=== PATIENT | female | born 1935 | race Caucasian/White ===

== ENCOUNTER 2016-10-07 13:22 | Inpatient (IN) | payer MEDICARE ==
[2016-10-07 14:56] VITALS: BMI 22.8
[2016-10-07] MEDS ORDERED: HEPARIN SODIUM,PORCINE 5,000 UNIT/ML 1 ML VIAL IV PRN (16:06)
[2016-10-07] MEDS ORDERED: HEPARIN SODIUM,PORCINE 10,000 UNIT/ML 1 ML VIAL IV ONE (16:06)
[2016-10-07] MEDS ORDERED: ALBUTEROL SULFATE INHALATION PRN (16:41)
[2016-10-07] MEDS ORDERED: IPRATROPIUM-ALBUTEROL 3 ML NEB INHALATION PRN (16:43)
[2016-10-07] MEDS: HEPARIN SODIUM,PORCINE/D5W PMX 25,000 UNIT in DEXTROSE/WATER 1 500ML.BAG IV SCH (16:49)
--- NOTE | 2016-10-07 16:51 | P.HPIM ---
History of Present Illness H&P Date: 10/07/16 Chief Complaint: Pulmonary embolism, dyspnea and shortness of breath, severe pleuritic 81-year-old female one of my office patient of radha seen over a year ago is known to have history of breast cancer history of peptic ulcer disease hyperlipidemia and osteoporosis who presented to the office 2 weeks ago with significant wheezes tightness severe bronchitis and pneumonitis. Patient was treated with 1 course of antibiotic along with Medrol Dosepak and albuterol she is done better but continue having slight shortness of breath. Return to the office the other day with symptoms consistent with mild pain with deep inspiration mostly consistent in the midsternal area laterally with no exertional pain associated with it. Arrangement for CTA was done which was performing came back positive for pulmonary embolism. Patient was called and and directly admitted to the hospital for pulmonary embolism was start her on heparin drip consult pulmonary continue updraft treatment continue current treatment management for it and patient will be on anticoagulation for the next 6 months also Doppler of the lower extremity be done to exclude the possibility of DVT had cause of PE. Surprisingly her CT showed 5 mm right apical pulmonary nodular need to be watch and follow in the next few month. Review of Systems Constitutional: Reports anorexia, Reports fatigue, Reports malaise, Reports poor appetite, Reports weakness, Denies as per HPI, Denies chills, Denies chronic headaches, Denies chronic pain, Denies daytime sleepiness, Denies fever , Denies lethargy, Denies night sweats, Denies sweats, Denies weight gain, Denies weight loss Eyes: bilateral as per HPI Ears: bilateral: decreased hearing Ears, nose, mouth and throat: Reports nasal congestion, Reports nasal discharge , Reports sinus pain, Reports sinus pressure, Denies as per HPI, Denies ant. neck pain, Denies bleeding gums, Denies dental pain, Denies dysphagia, Denies epistaxis, Denies headache, Denies hoarseness, Denies mouth pain, Denies neck fullness/pressure, Denies neck lump, Denies nose pain, Denies odynophagia, Denies post-nasal drip, Denies swelling in mouth, Denies swelling in throat, Denies sore throat, Denies vertigo, Denies voice changes Breasts: bilateral: as per HPI Cardiovascular: Reports chest pain, Reports decreased exercise tolerance, Reports edema, Reports high blood pressure, Reports irregular heart beat, Reports leg edema, Reports lightheadedness, Reports orthopnea, Reports paroxysmal nocturnal dyspnea, Reports rapid heart beat, Reports shortness of breath, Denies as per HPI, Denies claudication, Denies dyspnea on exertion, Denies palpitations, Denies phlebitis, Denies syncope Respiratory: Reports congestion, Reports cough, Reports dyspnea, Reports pain on inspiration, Reports pleurisy, Reports wheezing, Denies as per HPI, Denies cough with sputum, Denies excessive sputum, Denies hemoptysis, Denies home oxygen, Denies pain, Denies respiratory infections, Denies sleep apnea, Denies snoring Gastrointestinal: Reports abdominal pain, Reports bloating, Reports BRBPR, Reports constipation, Reports dyspepsia, Reports indigestion, Reports nausea, Denies as per HPI, Denies belching, Denies change in bowel habits, Denies coffee ground emesis, Denies diarrhea, Denies early satiety, Denies excessive gas, Denies heartburn, Denies hematemesis, Denies hematochezia, Denies jaundice , Denies lactose intolerance, Denies loss of appetite, Denies melena, Denies vomiting Genitourinary: Reports nocturia, Reports urge incontinence, Reports urgency, Denies as per HPI, Denies abnormal vaginal bleeding, Denies decreased libido, Denies difficulty conceiving, Denies difficulty voiding, Denies dysmenorrhea, Denies dyspareunia, Denies dysuria, Denies flank pain, Denies genital sores, Denies hematuria, Denies hot flashes, Denies incomplete emptying, Denies kidney stones, Denies menorrhagia, Denies mixed incontinence, Denies pelvic pain, Denies post void dribbling, Denies , Denies prolapse symptoms, Denies stress incontinence, Denies urinary frequency, Denies vaginal discharge, Denies vaginal dryness, Denies vaginal itching, Denies vaginal odor Musculoskeletal: Reports loss of height, Reports low back pain, Reports neck pain, Reports neck stiffness, Denies as per HPI, Denies arm numbness/tingling, Denies atrophy, Denies fractures, Denies frequent falls, Denies gait dysfunction , Denies hot joints, Denies leg numbness/tingling, Denies limitation of motion, Denies morning stiffness, Denies muscle cramps, Denies muscle weakness, Denies myalgias, Denies prior amputations, Denies redness of joints, Denies shooting arm pain, Denies shooting leg pain Integumentary: Reports pruritus, Reports rash, Denies as per HPI, Denies acne, Denies boils, Denies brittle nails, Denies change in hair/nails, Denies color changes, Denies darkening of skin, Denies depigmentation, Denies dryness, Denies foot/leg ulcers, Denies growths, Denies hirsutism, Denies lesions, Denies onychomycosis, Denies sores, Denies striae, Denies unusual bruising, Denies wounds Neurological: Reports numbness, Reports paresthesias, Reports weakness, Denies as per HPI, Denies aphasia, Denies ataxia, Denies balance difficulties, Denies burning pain, Denies change in mentation, Denies change in smell/taste, Denies change in speech, Denies confusion, Denies convulsions, Denies double vision, Denies gait dysfunction, Denies head injury, Denies headaches, Denies hearing difficulties, Denies lack of coordination, Denies loss of vision, Denies memory loss, Denies migraines, Denies motor disturbance, Denies paralysis, Denies seizures, Denies sensory deficit, Denies spasticity, Denies syncope, Denies tic , Denies tingling, Denies transient paralysis, Denies tremors, Denies vertigo, Denies visual changes Psychiatric: Reports anhedonia, Reports anxiety, Reports depression, Denies as per HPI, Denies anxiety attacks, Denies change in appetite, Denies change in libido, Denies change in sleep habits, Denies confusion, Denies difficulty concentrating, Denies disorientation, Denies hallucinations, Denies hopelessness , Denies hypersomnia, Denies insomnia, Denies irritability, Denies memory loss, Denies mood swings, Denies paranoia, Denies sadness/tearfulness, Denies sleep disturbances, Denies suicidal ideation Endocrine: Reports cold intolerance, Reports fatigue, Denies as per HPI, Denies deepening of the voice, Denies excessive sweating, Denies excessive thirst, Denies flushing, Denies heat intolerance, Denies high blood sugars, Denies increase in ring/shoe/hat size, Denies low blood sugars, Denies nocturia, Denies palpitations, Denies polydipsia, Denies polyphagia, Denies polyuria, Denies proptosis, Denies recent glucocorticoid use, Denies thyroid mass, Denies weight change Hematologic/Lymphatic: Reports easy bruising, Denies as per HPI, Denies easy bleeding, Denies lymphadenopathy, Denies lymphedema, Denies thrombophilia Allergic/Immunologic: Reports allergic rhinitis, Denies as per HPI, Denies anaphylaxis, Denies angioedema, Denies gluten intolerance, Denies persistent infections, Denies seasonal allergies, Denies urticaria, Denies wheezing Past Medical History Past Medical History: Cancer Additional Past Medical History / Comment(s): TENDONITIS, LEFT BREAST CA History of Any Multi-Drug Resistant Organisms: None Reported Past Surgical History: Cholecystectomy, Hernia Repair, Tonsillectomy Additional Past Surgical History / Comment(s): LEFT BREAST LUMP REMOVAL Past Psychological History: No Psychological Hx Reported Smoking Status: Never smoker Past Alcohol Use History: None Reported Past Drug Use History: None Reported Medications and Allergies Home Medications Medication Instructions Recorded Confirmed Type Cholecalciferol (Vitamin D3) 50,000 unit PO FR 07/15/15 10/07/16 History [Vitamin D] Vits A,C,E/Lutein/Minerals 1 tab PO DAILY 07/15/15 10/07/16 History [Ocuvite with Lutein Tablet] Vitamin E 400 unit PO DAILY 07/23/15 10/07/16 History Albuterol Sulfate [Proair 1 puff INHALATION RT-Q6H PRN 10/07/16 10/07/16 History Respiclick] Carboxymethylcellulose Sodium 1 drop BOTH EYES BID 10/07/16 10/07/16 History [Refresh Tears] Colchicine 0.6 mg PO DAILY 10/07/16 10/07/16 History Allergies Allergy/AdvReac Type Severity Reaction Status Date / Time nitrofurantoin Allergy Unknown Verified 10/07/16 15:49 [From Macrobid] nitrofurantoin Allergy Unknown Verified 10/07/16 15:49 macrocrystalline [From Macrobid] cefuroxime axetil AdvReac Unknown Verified 10/07/16 15:49 [From Ceftin] iodine AdvReac Unknown Verified 10/07/16 15:49 Sulfa (Sulfonamide AdvReac Unknown Verified 10/07/16 15:49 Antibiotics) Physical Exam Vitals: Vital Signs Pulse Resp BP Pulse Ox 10/07/16 16:00 52 L 18 140/72 97 Intake and Output 10/07/16 10/07/16 10/07/16 06:59 14:59 22:59 Other: Weight 60.2 kg Patient Weight 10/08/16 06:59 Weight 60.2 kg - Constitutional General appearance: no average body habitus, cooperative, disheveled, no mild distress, no morbidly obese, no acute distress, no obese, no severe distress, no thin - EENT Eyes: no abnormal pupil, no anicteric sclerae, no disc margins sharp, no edentulous, no EOMI, no PERRLA, no fundus normal, no photophobia, no dentition normal, no poor dentition, no ptosis, no scleral icterus, normal appearance ENT: no hard of hearing, no hearing grossly normal, no NA/AT, normal oropharynx , no other, no pharyngeal erythema, no thrush, no tonsillar exudates, no tonsillar swelling Ears: bilateral: normal - Neck Neck: no lymphadenopathy, normal ROM, no other, no rigidity, no stridor, no thyromegaly Carotids: bilateral: upstroke normal Thyroid: bilateral: normal size - Respiratory Respiratory: bilateral: diminished, dullness, rales - Cardiovascular Rhythm: regular Heart sounds: normal: S1, S2 Abnormal Heart Sounds: systolic murmur, S3 Gallop - Gastrointestinal General gastrointestinal: no absent bowel sounds, no decreased bowel sounds, distended, no hepatomegaly, no hyperactive bowel sounds, no normal bowel sounds , no organomegaly, no rigid, no scaphoid, soft, no splenomegaly, no tenderness, no umbilical hernia, no ventral hernia - Integumentary Integumentary: cellulitis, normal, pale, rash - Neurologic Neurologic: CNII-XII intact - Musculoskeletal Musculoskeletal: gait normal, generalized weakness, strength equal bilaterally, no right sided weakness, no left sided weakness - Psychiatric Psychiatric: A&O x's 3, appropriate affect Results CBC & Chem 7: 10/08/16 06:20 10/07/16 16:46 Thrombosis Risk Factor Assmnt - DVT/VTE Prophylaxis DVT/VTE Prophylaxis: Pharmacologic Prophylaxis ordered, Mechanical Prophylaxis ordered - Choose All That Apply Any of the Below Risk Factors Present?: Yes Each Risk Factor Represents 3 Points: Age 75 years or older Thrombosis Risk Factor Assessment Total Risk Factor Score: 3 Thrombosis Risk Factor Assessment Level: Moderate Risk Assessment and Plan Plan: 1 pulmonary embolism: Acute with worsening dyspnea and shortness of breath more pleuritic type with this finding Doppler of the lower extremity be done patient be started on heparin drip per protocol and convert to oral anticoagulation in the next 48 hours we'll consult pulmonary keep watching for any other sign and symptoms consistent with PE. 2 pulmonary nodular: Small at this point but need to be watched repeat another CT in 3 months. 3 recent history of pneumonitis and reactive airway/asthma: Continue patient on DuoNeb and no steroid needed at this point patient was on steroid last week. 4 history of breast cancer: Has been in remission. 5 hyperlipidemia: Has been on diet control. 6 history of peptic ulcer disease/GI prophylaxis: Patient be continue on 20 mg omeprazole daily. 7 COPD: Finding consistent with COPD on CT patient never smoked her symptoms are more chronic bronchitis/asthma cause COPD. Will add Pulmicort to her current regime. CODE STATUS: Full code. Expectation from this admission: Patient be in the hospital for more than 2 nights
[2016-10-07] MEDS ORDERED: ERGOCALCIFEROL 50,000 UNIT CAP PO SCH (17:00)
[2016-10-07 17:08] LABS: Basophils % (A) 0 %; CH 29.9; CHCM 33.7; Eosinophils % (A) 0 %; HCT 34.5 % (34.0-46.0); HDW 2.35; HGB 11.9 gm/dL (11.4-16.0); Luc # (Auto) 0.03; Luc % (Auto) 1; Lymphocytes # (A) 0.7 k/uL (1.0-4.8); Lymphocytes % (A) 15 %; MCH 30.7 pg (25.0-35.0); MCHC 34.4 g/dL (31.0-37.0); MCV 89.2 fL (80.0-100.0); Mean Platelet Volume 7.6; Monocytes # (A) 0.2 k/uL (0-1.0); Monocytes % (A) 4 %; Neutrophils # (A) 3.8 k/uL (1.3-7.7); Neutrophils % (A) 81 %; RBC 3.87 m/uL (3.80-5.40); RDW 13.3 % (11.5-15.5); WBC 4.7 k/uL (3.8-10.6); WBC (Perox) 4.88
[2016-10-07 17:14] LABS: INR 1.1 (<1.2); Prothrombin Time 10.9 sec (9.0-12.0)
[2016-10-07 17:16] LABS: Anion Gap 14 mmol/L; Calcium 9.2 mg/dL (8.4-10.2); Carbon Dioxide 20 mmol/L (22-30); Chloride 106 mmol/L (98-107); Glucose 179 mg/dL (74-99); Non-African American GFR(MDRD) >60 (>60 ml/min/1.73 sqM); Potassium 3.8 mmol/L (3.5-5.1); Sodium 140 mmol/L (137-145)
[2016-10-07 17:17] LABS: Blood Urea Nitrogen 26 mg/dL (7-17)
[2016-10-07] MEDS: ARTIFICIAL TEARS-HYPROMELLOSE DROPS 15 ML BTL BOTH EYES SCH (20:36)
[2016-10-08 06:48] LABS: Basophils % (A) 0 %; CHCM 33.2; Eosinophils # (A) 0.1 k/uL (0-0.7); Eosinophils % (A) 1 %; HCT 36.1 % (34.0-46.0); HDW 2.39; HGB 12.1 gm/dL (11.4-16.0); Luc # (Auto) 0.18; Luc % (Auto) 2; Lymphocytes # (A) 1.8 k/uL (1.0-4.8); Lymphocytes % (A) 21 %; MCH 30.3 pg (25.0-35.0); MCHC 33.4 g/dL (31.0-37.0); MCV 90.6 fL (80.0-100.0); Monocytes # (A) 0.5 k/uL (0-1.0); Monocytes % (A) 6 %; Neutrophils # (A) 5.9 k/uL (1.3-7.7); Neutrophils % (A) 70 %; RBC 3.99 m/uL (3.80-5.40); RDW 13.4 % (11.5-15.5); WBC 8.5 k/uL (3.8-10.6); WBC (Perox) 9.01
[2016-10-08] MEDS: PANTOPRAZOLE 40 MG TABLET PO SCH (06:51)
[2016-10-08] MEDS: VIT A,C & E-LUTEIN-MINERALS 1 EACH TAB PO SCH (09:14)
[2016-10-08] MEDS: VITAMIN E (DL,TOCOPHERYL ACET) 400 UNIT CAP PO SCH (09:14)
[2016-10-08] MEDS: ARTIFICIAL TEARS-HYPROMELLOSE DROPS 15 ML BTL BOTH EYES SCH ×2 (09:15→20:35)
--- NOTE | 2016-10-08 10:58 | P.CNPUL ---
History of Present Illness Consult date: 10/08/16 Requesting physician: Chauncey Alfaro Reason for consult: pulmonary embolism Chief complaint: Shortness of breath, cough, pain on inhalation History of present illness: This is a very pleasant 81-year-old female patient who follows with Dr. Alfaro as her primary care physician. He has a history of left-sided breast cancer that has been in remission, hyperlipidemia, peptic ulcer disease, recent bronchitis. The patient has a left lung nonsmoker. The patient was seen by Dr. lange recently for complaints of cough shortness of breath pain on inhalation and was treated with antibiotics and a Medrol Dosepak. She was seen again in follow-up with continued symptoms. He had arranged for a CT angiogram that came back positive for hospital small pulmonary emboli and she was admitted here directly yesterday for the same. The CT angiogram revealed bibasilar infiltrate and changes suggestive of pulmonary fibrosis. There was suspicion for small filling defects within the lower lobe branch of the right and left pulmonary arteries suggestive of pulmonary emboli. There is also a nonspecific 5 mm right apical pulmonary nodule. The patient was initiated on heparin and will moist likely need 6 months of anticoagulant therapy. She is seen today in consultation on the selective care unit. She is awake and alert in no acute distress. She is somewhat of a poor historian. She does state that she is quite active and is out walking on a daily basis though her son is at the bedside and states that may not necessarily be true. She does states she is breathing easier today as compared to yesterday but still has some midsternal discomfort on inhalation. She has a loose nonproductive cough. She is maintaining good O2 saturations in the upper 90s on room air. She's been hemodynamically stable. Dopplers of the lower extremities are pending. She denies any calf pain or tenderness. No edema. Review of Systems 14 point review of systems was conducted. All negative other than as mentioned in the HPI. Past Medical History Past Medical History: Cancer Additional Past Medical History / Comment(s): TENDONITIS, LEFT BREAST CA History of Any Multi-Drug Resistant Organisms: None Reported Past Surgical History: Cholecystectomy, Hernia Repair, Tonsillectomy Additional Past Surgical History / Comment(s): LEFT BREAST LUMP REMOVAL Past Psychological History: No Psychological Hx Reported Smoking Status: Never smoker Past Alcohol Use History: None Reported Past Drug Use History: None Reported Medications and Allergies Home Medications Medication Instructions Recorded Confirmed Type Cholecalciferol (Vitamin D3) 50,000 unit PO FR 07/15/15 10/07/16 History [Vitamin D] Vits A,C,E/Lutein/Minerals 1 tab PO DAILY 07/15/15 10/07/16 History [Ocuvite with Lutein Tablet] Vitamin E 400 unit PO DAILY 07/23/15 10/07/16 History Albuterol Sulfate [Proair 1 puff INHALATION RT-Q6H PRN 10/07/16 10/07/16 History Respiclick] Carboxymethylcellulose Sodium 1 drop BOTH EYES BID 10/07/16 10/07/16 History [Refresh Tears] Colchicine 0.6 mg PO DAILY 10/07/16 10/07/16 History Allergies Allergy/AdvReac Type Severity Reaction Status Date / Time nitrofurantoin Allergy Unknown Verified 10/07/16 15:49 [From Macrobid] nitrofurantoin Allergy Unknown Verified 10/07/16 15:49 macrocrystalline [From Macrobid] cefuroxime axetil AdvReac Unknown Verified 10/07/16 15:49 [From Ceftin] iodine AdvReac Unknown Verified 10/07/16 15:49 Sulfa (Sulfonamide AdvReac Unknown Verified 10/07/16 15:49 Antibiotics) Physical Exam Vitals: Vital Signs Temp Pulse Resp BP Pulse Ox 10/08/16 08:00 96.9 F L 55 L 16 103/44 97 10/08/16 04:00 56 L 18 115/56 96 10/08/16 00:00 54 L 18 135/64 97 10/07/16 20:00 96.9 F L 62 18 131/63 96 10/07/16 16:00 52 L 18 140/72 97 Intake and Output 10/07/16 10/08/16 10/08/16 22:59 06:59 14:59 Intake Total 143.383 149.265 Output Total 5163 810 9542 Balance -1200 -756.617 -1250.735 Intake: Intake, IV Titration 143.383 149.265 Amount Heparin Sodium,Porcine/ 143.383 149.265 D5w Pmx 25,000 unit In Dextrose/Water 1 500ml. bag @ 18 UNITS/KG/HR 21. 67 mls/hr IV .[id number] Rx#:[id number] Output: Urine 351 125 2261 Straight 700 600 Post Void Residual 300 Other: # Voids 0 1 Weight 60 kg GENERAL EXAM: Alert, comfortable in no apparent distress. HEAD: Normocephalic. EYES: Normal reaction of pupils, equal size. NOSE: Clear with pink turbinates. THROAT: No erythema or exudates. NECK: No masses, no JVD. CHEST: No chest wall deformity. LUNGS: Equal air entry with crackles in the posterior bases. CVS: S1 and S2 normal with no audible murmurs, regular rhythm. ABDOMEN: No hepatosplenomegaly, normal bowel sounds, no guarding or rigidity. SPINE: No scoliosis or deformity SKIN: No rashes CENTRAL NERVOUS SYSTEM: No focal deficits, tone is normal in all 4 extremities. Extremities: There is no peripheral edema. No clubbing, no cyanosis. Peripheral pulses are intact. Results - Laboratory Findings CBC and BMP: 10/08/16 06:20 10/07/16 16:46 PT/INR, D-dimer PT 10.9 sec (9.0-12.0) 10/07/16 16:46 INR 1.1 (<1.2) 10/07/16 16:46 Abnormal lab findings: Abnormal Labs 10/07/16 10/07/16 10/07/16 16:46 16:46 22:20 Lymphocytes # 0.7 L APTT 94.7 H Carbon Dioxide 20 L BUN 26 H Glucose 179 H Free T3 pg/mL 1.8 L 10/08/16 06:20 Lymphocytes # APTT 80.9 H Carbon Dioxide BUN Glucose Free T3 pg/mL - Diagnostic Findings CT scan - chest: image reviewed Assessment and Plan Plan: Impression: #1 Dyspnea, multifactorial in a patient found to have small bilateral pulmonary emboli, pulmonary fibrosis and possible pneumonitis with failed outpatient treatment. #2 Nonspecific 5 mm right apical pulmonary nodule. #3 History of left-sided breast cancer. Plan: The patient was seen and evaluated by Dr. Melgar. The computed tomography scan was reviewed. The patient does have some component of pulmonary fibrosis. There is also noted 5 mm nonspecific nodule in the right apical area that'll need to be followed up with future CAT scans. She would benefit from an appointment in our office post discharge where we would perform a full pulmonary function testing to evaluate her lung capacity and make recommendations for further treatment if necessary. In the interim, we'll continue with heparin drip with plans to place on oral anticoagulant possibly Xarelto. We'll continue with bronchodilators. She is on Protonix for GI prophylaxis. We'll continue to follow. Time with Patient: Greater than 30
--- NOTE | 2016-10-08 13:39 | P.PN ---
Subjective Principal diagnosis: Pulmonary embolism, dyspnea and shortness of breath, severe pleuritic chest pain and dyspnea, mild asthma/COPD, history of breast cancer 81-year-old female one of my office patient of radha seen over a year ago is known to have history of breast cancer history of peptic ulcer disease hyperlipidemia and osteoporosis who presented to the office 2 weeks ago with significant wheezes tightness severe bronchitis and pneumonitis. Patient was treated with 1 course of antibiotic along with Medrol Dosepak and albuterol she is done better but continue having slight shortness of breath. Return to the office the other day with symptoms consistent with mild pain with deep inspiration mostly consistent in the midsternal area laterally with no exertional pain associated with it. Arrangement for CTA was done which was performing came back positive for pulmonary embolism. Patient was called and and directly admitted to the hospital for pulmonary embolism was start her on heparin drip consult pulmonary continue updraft treatment continue current treatment management for it and patient will be on anticoagulation for the next 6 months also Doppler of the lower extremity be done to exclude the possibility of DVT had cause of PE. Surprisingly her CT showed 5 mm right apical pulmonary nodular need to be watch and follow in the next few month. 10/08/2016: Patient is doing very well remain on heparin drip to check with her insurance the coverage Eliquis she'll be started on 5 mg twice a day and prepare for home hopefully on Monday or Monday. Patient having no side effect or complication she was seen pulmonary agreeable with the current management will require to have another CT of the chest in 4-6 weeks for nodular found incidentally with this last CAT scan. Objective - Vital Signs Vital signs: Vital Signs Temp 97.0 F L 10/08/16 11:33 Pulse 51 L 10/08/16 11:33 Resp 16 10/08/16 11:33 BP 103/45 10/08/16 11:33 Pulse Ox 98 10/08/16 11:33 Intake & Output 10/07/16 10/08/16 10/08/16 18:59 06:59 18:59 Intake Total 143.383 385.265 Output Total 2100 1400 Balance -3340.617 -3666.738 Weight 60.2 kg 60 kg Intake: Intake, IV Titration 143.383 149.265 Amount Heparin Sodium,Porcine/ 143.383 149.265 D5w Pmx 25,000 unit In Dextrose/Water 1 500ml. bag @ 18 UNITS/KG/HR 21. 67 mls/hr IV .[id number] IVY Rx#:[id number] Oral 236 Output: Urine 1800 1400 Straight 1300 Post Void Residual 300 Other: # Voids 0 1 - Constitutional General appearance: Present: cooperative, disheveled, no acute distress. Absent : average body habitus, mild distress, morbidly obese, obese, severe distress, thin - EENT Eyes: Present: normal appearance. Absent: abnormal pupil, anicteric sclerae, disc margins sharp, edentulous, EOMI, PERRLA, fundus normal, photophobia, dentition normal, poor dentition, ptosis, scleral icterus ENT: Present: normal oropharynx, pharyngeal erythema. Absent: hard of hearing, hearing grossly normal, NA/AT, other, thrush, tonsillar exudates, tonsillar swelling Ears: bilateral: normal - Neck Neck: Present: normal ROM Carotids: bilateral: upstroke normal, upstroke delayed Thyroid: bilateral: normal size - Respiratory Respiratory: left: diminished, dullness, rhonchi - Cardiovascular Rhythm: regular Heart sounds: normal: S1, S2 Abnormal Heart Sounds: Present: systolic murmur - Gastrointestinal General gastrointestinal: Present: decreased bowel sounds, distended, soft. Absent: absent bowel sounds, hepatomegaly, hyperactive bowel sounds, normal bowel sounds, organomegaly, rigid, scaphoid, splenomegaly, tenderness, umbilical hernia, ventral hernia - Integumentary Integumentary: Present: normal, pale, rash. Absent: calor, cellulitis, cyanotic , decreased turgor, flushed, jaundiced, normal turgor, ulcer - Neurologic Neurologic: Present: CNII-XII intact. Absent: focal deficits - Musculoskeletal Musculoskeletal: Present: gait normal, generalized weakness, strength equal bilaterally. Absent: right sided weakness, left sided weakness - Psychiatric Psychiatric: Present: A&O x's 3, appropriate affect. Absent: intact judgment & insight - Labs CBC & Chem 7: 10/08/16 06:20 10/07/16 16:46 Labs: Abnormal Lab Results - Last 24 Hours (Table) 10/07/16 10/07/16 10/07/16 Range/Units 16:46 16:46 22:20 Lymphocytes # 0.7 L (1.0-4.8) k/uL APTT 94.7 H (22.0-30.0) sec Carbon Dioxide 20 L (22-30) mmol/L BUN 26 H (7-17) mg/dL Glucose 179 H (74-99) mg/dL Free T3 pg/mL 1.8 L (2.8-5.3) pg/ml 10/08/16 10/08/16 Range/Units 06:20 12:58 Lymphocytes # (1.0-4.8) k/uL APTT 80.9 H 72.6 H (22.0-30.0) sec Carbon Dioxide (22-30) mmol/L BUN (7-17) mg/dL Glucose (74-99) mg/dL Free T3 pg/mL (2.8-5.3) pg/ml Assessment and Plan Plan: 1 pulmonary embolism: Acute with worsening dyspnea and shortness of breath more pleuritic type with this finding Doppler of the lower extremity be done patient be started on heparin drip per protocol and convert to oral anticoagulation in the next 48 hours we'll consult pulmonary keep watching for any other sign and symptoms consistent with PE. Patient will be convert to oral anticoagulation by tomorrow. 2 pulmonary nodular: Small at this point but need to be watched repeat another CT in 3 months. 3 recent history of pneumonitis and reactive airway/asthma: Continue patient on DuoNeb and no steroid needed at this point patient was on steroid last week. 4 history of breast cancer: Has been in remission. 5 hyperlipidemia: Has been on diet control. 6 history of peptic ulcer disease/GI prophylaxis: Patient be continue on 20 mg omeprazole daily. 7 COPD: Finding consistent with COPD on CT patient never smoked her symptoms are more chronic bronchitis/asthma cause COPD. Will add Pulmicort to her current regime.
[2016-10-08] MEDS: HEPARIN SODIUM,PORCINE/D5W PMX 25,000 UNIT in DEXTROSE/WATER 1 500ML.BAG IV SCH ×2 (16:11→17:03)
[2016-10-08] MEDS: BUDESONIDE 0.5 MG/2 ML NEBU INHALATION SCH (20:47)
[2016-10-09] MEDS: PANTOPRAZOLE 40 MG TABLET PO SCH (06:53)
[2016-10-09 07:35] LABS: Basophils % (A) 1 %; CH 29.6; Eosinophils # (A) 0.2 k/uL (0-0.7); Eosinophils % (A) 4 %; HCT 35.1 % (34.0-46.0); HDW 2.38; HGB 11.6 gm/dL (11.4-16.0); Luc # (Auto) 0.07; Luc % (Auto) 2; Lymphocytes # (A) 1.1 k/uL (1.0-4.8); Lymphocytes % (A) 25 %; MCH 30.5 pg (25.0-35.0); MCHC 32.9 g/dL (31.0-37.0); MCV 92.9 fL (80.0-100.0); Mean Platelet Volume 7.9; Monocytes # (A) 0.2 k/uL (0-1.0); Monocytes % (A) 5 %; Neutrophils # (A) 2.8 k/uL (1.3-7.7); Neutrophils % (A) 63 %; RBC 3.78 m/uL (3.80-5.40); RDW 13.5 % (11.5-15.5); WBC 4.4 k/uL (3.8-10.6); WBC (Perox) 4.79
[2016-10-09 08:16] LABS: ALT 33 U/L (9-52); AST 29 U/L (14-36); Alkaline Phosphatase 50 U/L (38-126); Anion Gap 10 mmol/L; Blood Urea Nitrogen 16 mg/dL (7-17); Calcium 8.6 mg/dL (8.4-10.2); Carbon Dioxide 19 mmol/L (22-30); Chloride 112 mmol/L (98-107); Glucose 77 mg/dL (74-99); Non-African American GFR(MDRD) >60 (>60 ml/min/1.73 sqM); Potassium 3.5 mmol/L (3.5-5.1); Sodium 141 mmol/L (137-145); Total Bilirubin 0.2 mg/dL (0.2-1.3); Total Protein 5.5 g/dL (6.3-8.2)
[2016-10-09 08:58] VITALS: RESP 16
[2016-10-09] MEDS: VITAMIN E (DL,TOCOPHERYL ACET) 400 UNIT CAP PO SCH (09:03)
[2016-10-09] MEDS: ARTIFICIAL TEARS-HYPROMELLOSE DROPS 15 ML BTL BOTH EYES SCH (09:03)
[2016-10-09] MEDS: VIT A,C & E-LUTEIN-MINERALS 1 EACH TAB PO SCH (09:03)
[2016-10-09] MEDS: BUDESONIDE 0.5 MG/2 ML NEBU INHALATION SCH (09:09)
[2016-10-09] MEDS ORDERED: APIXABAN 5 MG TAB PO SCH (10:30)
[2016-10-09 11:08] VITALS: BP 105/51; PULSE 58; TEMP 97.4
--- NOTE | 2016-10-09 14:50 | PN ---
An 81 year old female that we saw yesterday in consultation. She has a history of left sided breath cancer. She also has a history of nonspecific right apical pulmonary nodule. We saw her for shortness of breath. She was found to have small bilateral pulmonary emboli. Also some degree of pulmonary fibrosis and also some possible pneumonitis. Anyway, the patient is doing much better. She tells me that she may go home today. The patient I believe was approved for Eliquis therapy. She is feeling much better. She never really was that ill. She had very mild shortness of breath. I think she did have some degree of dementia though because she was a poor historian. Anyway the patient looks much better. Currently vital signs are stable. Temperature 97.4, heart rate is 64. Respiratory rate is 16. Blood pressure 105/61. Mean 69. Room air saturation 97%. Appears in no acute distress. HEENT: Grossly unremarkable. Mucous membranes are moist. No oral lesions. Neck supple. Full range of motion. No adenopathy. No thyromegaly. Cardiovascular examination reveals regular rate and rhythm. S1, S2 normal. Lungs revealed mostly clear breath sounds. No wheezes, rhonchi or crackles. Does not take really deep breaths. Abdomen soft. Bowel sounds heard. Skin without rash. Extremities revealed no evidence of edema, cyanosis or clubbing. Labs are reviewed. White count 4.4, hemoglobin 11.6, hematocrit 35.1, platelet count 157,000. PTT 74.5. Sodium and potassium normal. Chloride 112, CO2 19. BUN and creatinine 16 and 0.6. The rest of the labs look okay. ASSESSMENT: 1. Dyspnea, likely secondary to bilateral smallish pulmonary emboli. 2. Mild pulmonary fibrosis. 3. Possible pneumonitis. 4. Nonspecific 5 mm right apical pulmonary nodule. 5. History of left sided breast cancer. PLAN: I believe the patient should benefit from six month therapy with anticoagulants. I believe she qualifies for either Xarelto or Eliquis. We will continue to follow. Prognosis guarded. MTDD
== END 2016-10-09 14:48 | disposition home or self-care (01) | DRG 176 ==
LOC: 6SEL 14:01
PROVIDERS: ADMIT Internal Medicine Geriatric Medicine; ATTEND Internal Medicine Geriatric Medicine
DX: I26.99 Other pulmonary embolism without acute cor pulmonale (principal); J84.10 Pulmonary fibrosis, unspecified; F03.90 Unspecified dementia, unspecified severity, without behavioral disturbance, psychotic disturbance, mood disturbance, and anxiety; J44.9 Chronic obstructive pulmonary disease, unspecified; E78.5 Hyperlipidemia, unspecified; R91.1 Solitary pulmonary nodule; Z85.3 Personal history of malignant neoplasm of breast; Z87.11 Personal history of peptic ulcer disease; M81.0 Age-related osteoporosis without current pathological fracture; Z90.49 Acquired absence of other specified parts of digestive tract; Z79.899 Other long term (current) drug therapy; Z88.2 Allergy status to sulfonamides; Z88.8 Allergy status to other drugs, medicaments and biological substances; Z88.1 Allergy status to other antibiotic agents; Z91.041 Radiographic dye allergy status
CPT/HCPCS: 80048; 80053; 84439; 84481; 85025; 85610; 85730; 93970; 94640

== ENCOUNTER → 2016-10-07 | Outpatient (CLI) | payer MEDICARE ==
[2016-10-07 09:24] LABS: Blood Urea Nitrogen 24 mg/dL (7-17); Non-African American GFR(MDRD) >60 (>60 ml/min/1.73 sqM)
--- NOTE | 2016-10-07 10:17 | CT ---
EXAMINATION TYPE: CT angio chest DATE OF EXAM: 10/07/2016 9:57 AM COMPARISON: NONE HISTORY: PE CT DLP: 115.6 mGycm Automated exposure control for dose reduction was used. CONTRAST: CTA scan of the thorax is performed with IV Contrast, patient injected with 39 mL of Omnipaque 350, p ulmonary embolism protocol. . FINDINGS: LUNGS: Correlate for COPD and chronic interstitial lung disease with findings of central bronchiectas is. Bilateral subsegmental areas of consolidation are seen. There is interlobular septal thickening s uggest pulmonary fibrosis. Calcified granuloma within the right lower lobe. 5 mm right apical pulmona ry nodule and 17 with biapical pleural thickening. MEDIASTINUM: The heart is enlarged and the aorta is of normal caliber. There is no evidence of centra l pulmonary embolism and there is small area of low attenuation within a left lower lobe branch axial image 78 and 77 and right lower lobe axial image 81. Small pulmonary embolism not excluded. The hear t is enlarged. Coronary artery calcification seen. Calcified lymph nodes are seen OTHER: Splenic and hepatic granuloma noted. Small hiatal hernia noted. Hypertrophic and degenerative change of the spine noted. IMPRESSION: 1. COPD WITH BIBASILAR INFILTRATE AND CHANGES SUGGESTIVE OF PULMONARY FIBROSIS. 2. FINDINGS SUSPICIOUS FOR SMALL FILLING DEFECTS WITHIN LOWER LOBE BRANCH OF THE RIGHT AND LEFT PULMO NARY ARTERY. SMALL DISTAL BRANCH PULMONARY EMBOLISM SUGGESTED, CORRELATE CLINICALLY. 3. NONSPECIFIC 5 MM RIGHT APICAL PULMONARY NODULE BE FOLLOWED WITH A [address] TO CONFIRM STABILITY.
== END | disposition home or self-care (01) ==
LOC: RADCTMAIN 10-06 06:36
PROVIDERS: ATTEND Internal Medicine Geriatric Medicine
DX: J44.9 Chronic obstructive pulmonary disease, unspecified (principal); R91.8 Other nonspecific abnormal finding of lung field; R91.1 Solitary pulmonary nodule
CPT/HCPCS: 82565; 84520; 71275; 36415; Q9967

== ENCOUNTER → 2016-10-26 | Outpatient (CLI) | payer MEDICARE ==
--- NOTE | 2016-10-27 07:01 | MM ---
Reason for exam: additional evaluation requested from prior study. Last mammogram was performed 1 year ago. History: Patient is postmenopausal and has history of breast cancer at age 77. Family history of breast cancer in paternal aunt. Lumpectomy of the left breast, April 02, 2012. Took hormonal contraceptives for 1 year. Took antineoplastic for 2 years. Physical Findings: Nurse did not find any significant physical abnormalities on exam. MG 3D Diag Mammo W/Cad VIRI Bilateral CC and MLO view(s) were taken. Prior study comparison: October 19, 2015, bilateral MG 3d diag mammo w/cad VIRI. October 16, 2014, bilateral MG diagnostic mammo w CAD VIRI. The breast tissue is heterogeneously dense. This may lower the sensitivity of mammography. Post therapy changes on the left breast. These results were verbally communicated with the patient and result sheet given to the patient on 10/26/16. ASSESSMENT: Benign, BI-RAD 2 RECOMMENDATION: Routine screening mammogram of both breasts in 1 year.
== END | disposition home or self-care (01) ==
LOC: RADMAMWWP 13:26
PROVIDERS: ATTEND Internal Medicine Geriatric Medicine
DX: R92.8 Other abnormal and inconclusive findings on diagnostic imaging of breast (principal)
CPT/HCPCS: G0204; G0279

== ENCOUNTER → 2016-12-23 | Outpatient (CLI) | payer MEDICARE ==
[2016-12-23 10:26] LABS: Blood Urea Nitrogen 15 mg/dL (7-17); Non-African American GFR(MDRD) >60 (>60 ml/min/1.73 sqM)
--- NOTE | 2016-12-23 11:28 | CT ---
CT CHEST FOR PULMONARY EMBOLISM. EXAMINATION TYPE: CT angio chest DATE OF EXAM: 12/23/2016 INDICATION: PE, nodule CT DLP: 144.1 mGycm, Automated exposure control for dose reduction was used. CONTRAST: Patient injected with 100 mL of Omnipaque 350. COMPARISON: 10/07/2016 TECHNIQUE: CT of the chest is performed on a spiral scan at 2 mm thick sections. Study is performed with intravenous contrast timed for evaluation for pulmonary embolism. This will limit additional po rtions of the evaluation. 3-D MIP images reconstructed by the technologist are reviewed on the compu ter in the coronal and sagittal planes. FINDINGS: No persistent filling defects are evident to suggest an acute pulmonary embolism. No mediastinal or hilar adenopathy enlarged by CT criteria is evident. The ascending aorta diameter at the level of the main pulmonary artery is 2.9 cm. The main pulmonary artery diameter at the bifur cation is 2.1 cm. There is scarring at the bilateral lung apices. A 0.5 cm nodules in the medial right apex. There may be some pulmonary fibrosis in the dependent lower lung kraft. Mild subsegmental atelectasis may be a t the lung bases. There may be some mild bronchiectasis in the lung bases. Small hiatal hernia is present. Minimal left pleural effusion may be present. Coronary artery calcifi cation is noted. Limited CT section through the upper abdomen are unremarkable. IMPRESSIONS: 1. No acute pulmonary embolism. 2. Stable nodule right apex. Stable bilateral lung apex scarring appears to be present. 3. Mild pulmonary fibrosis lower lung kraft dependent portions.
== END | disposition home or self-care (01) ==
LOC: RADCTMAIN 09:37
PROVIDERS: ATTEND Internal Medicine Geriatric Medicine
DX: R91.1 Solitary pulmonary nodule (principal); J84.10 Pulmonary fibrosis, unspecified
CPT/HCPCS: 82565; 84520; 71275; 36415; Q9967